=== PATIENT | female | born 1990 | race Caucasian/White ===

== ENCOUNTER → 2016-11-24 | Outpatient (CLI) | payer OTHER ==
--- NOTE | 2016-11-24 13:48 | XR ---
EXAMINATION TYPE: XR spine complete AP and Lat DATE OF EXAM: 11/24/2016 1:45 PM COMPARISON: NONE HISTORY: Neck and back pain TECHNIQUE: Frontal and lateral views of entire spine are obtained including dedicated swimmer's view of the cervical thoracic junction and open mouth view of the C1-C2 articulation. FINDINGS: Cervical spine is seen from C1 through top of T1 level, demonstrates reversal of normal cer vical curvature without evidence of acute fracture or dislocation. Vertebral body heights and disc sp antonia heights are maintained. C1-C2 articulation is within normal limits on the open mouth view. [place] ing soft tissue is unremarkable. Thoracic spine shows satisfactory alignment without evidence of acute fracture or dislocation. Verteb ral body heights and disc space heights are maintained. Visualized ribs are intact bilaterally. There are 5 lumbar type vertebra identified. Lumbar spine shows satisfactory alignment without eviden ce of acute fracture or dislocation. Vertebral body heights and disc space heights are maintained. Ov erlying soft tissue is unremarkable. No significant spurring throughout is present. IMPRESSION: Reversal of normal cervical curvature otherwise unremarkable study.
== END | disposition home or self-care (01) ==
LOC: RADXRMAIN 13:01
PROVIDERS: ATTEND Internal Medicine
DX: R52 Pain, unspecified (principal)
CPT/HCPCS: 72082

== ENCOUNTER → 2016-12-03 | Outpatient (CLI) | payer OTHER ==
--- NOTE | 2016-12-06 07:51 | MM ---
Reason for exam: clinical finding. Baseline mammogram. History: Family history of breast cancer in maternal grandmother and breast cancer in maternal aunt at age 30. MG 3D Diag Mammo W/Cad EVGENY Bilateral CC, MLO, and XCCL view(s) were taken. There are scattered fibroglandular densities. Finding: There are typically benign round calcifications in both breasts. These results were verbally communicated with the patient and result sheet given to the patient on 12/03/16. ASSESSMENT: Benign, BI-RAD 2 RECOMMENDATION: Routine screening mammogram of both breasts at age 42. Manage patient on a clinical basis.
--- NOTE | 2016-12-06 08:08 | USB ---
Reason for exam: clinical finding. History: Family history of breast cancer in maternal grandmother and breast cancer in maternal aunt at age 30. US Breast RT Right breast ultrasound includes all four quadrants, the retroareolar region and axilla. Finding demonstrates a 0.3 x 0.4 x 0.2cm oval lesion too small to characterize at 6 o'clock. These results were verbally communicated with the patient and result sheet given to the patient on 12/03/16. ASSESSMENT: Benign, BI-RAD 2 RECOMMENDATION: Routine screening mammogram of both breasts at age 42. Manage patient on a clinical basis.
== END | disposition home or self-care (01) ==
LOC: RADMAMWWP 13:45
PROVIDERS: ATTEND Internal Medicine
DX: N64.52 Nipple discharge (principal); N64.4 Mastodynia
CPT/HCPCS: 76641; G0204; G0279

== ENCOUNTER → 2017-02-21 | Outpatient (CLI) | payer OTHER ==
--- NOTE | 2017-02-21 12:46 | US ---
EXAMINATION TYPE: US OB <=14 wks transvag DATE OF EXAM: 02/21/2017 COMPARISON: NONE CLINICAL HISTORY: R10.2 Pelvic pain. Cramping after fall yesterday, no bleeding EXAM PERFORMED: OBTA/TV EXAM MEASUREMENTS: GESTATIONAL AGE / DATING Physician Established: not established Dates by LMP: (8 weeks/0 days) EDC: 10/03/2016 Dates by First Scan: NURSES AIDE Dates by Current Scan for: (7 weeks/1 days) EDC: 10/09/2017 MATERNAL ANATOMY Uterus: 11.7 x 6.8 x 5.5cm Right Ovary: 3.4 x 3.2 x 2.1 Left Ovary: 2.2 x 2.1 x 1.0 Post CDS / Adnexa: wnl Presence of free fluid: no Presence of corpus luteal cyst: yes, right = 2.1 Presence of subchorionic bleed: no GESTATION / SURVEY CRL: 0.9cm ( 7 weeks/2 days) MSD: 2.4cm (6 weeks/6 days) Yolk Sac (normal less than 6mm): 0.2cm Heart Rate: 146 bpm Rhythm: Normal IUP: Viable IUP Date of LMP: 12/27/2016 Beta HcG (if available): not available tech impression to Lilia at office of viable IUP IMPRESSION: Single viable intrauterine . Corpus luteal cyst noted on the right.
== END | disposition home or self-care (01) ==
LOC: RADUSWWP 11:17
PROVIDERS: ATTEND Internal Medicine
DX: O34.81 Maternal care for other abnormalities of pelvic organs, first trimester (principal); N83.11 Corpus luteum cyst of right ovary; R10.2 Pelvic and perineal pain; Z3A.01 Less than 8 weeks gestation of pregnancy
CPT/HCPCS: 76801; 76817

== ENCOUNTER 2017-05-17 16:00 | Outpatient (CLI) | payer OTHER ==
--- NOTE | 2017-05-17 17:28 | US ---
EXAMINATION TYPE: US OB limited DATE OF EXAM: 05/17/2017 COMPARISON: 1st trimester OB CLINICAL HISTORY: for placental position, spotting. EXAM PERFORMED: Transabdominal (TA) GESTATIONAL AGE / DATING Physician Established: (20 weeks/1 days) EDC: 10/03/17 No growth performed on today?s study per ordering physician SURVEY PLACENTA: Anterior PREVIA: Low Lying Ultrasound evidence of abruption?no PRESENTATION: Breech HEART RATE: 148 bpm Technically difficult study. Patient of large body habitus, maternal thickness 4.7cm IMPRESSION: There is a low-lying anterior placenta without evidence of previa. No sign of placental abruption. Amniotic fluid appears adequate.
[2017-05-17 17:34] LABS: Appearance,Urine Cloudy (Clear); Bacteria,Urine Many /hpf; Bilirubin,Urine Negative (Negative); Glucose,Urine (UA) Negative (Negative); Ketones,Urine Negative (Negative); Leukocyte Esterase,Urine Negative (Negative); Mucus,Urine Occasional /hpf; Nitrite,Urine Negative (Negative); PH, Urine 5.5 (5.0-8.0); Particle Count 25871; Protein,Urine Trace (Negative); RBC,Urine 3 /hpf (0-5); Specific Gravity,Urine 1.025 (1.001-1.035); Squamous Epithelial Cell,Urine 5 /hpf (0-4); UA Billing (MACRO vs. MICRO) MICRO; WBC,Urine 8 /hpf (0-5)
[2017-05-17 18:00] VITALS: BP 121/58; PULSE 87; RESP 20; TEMP 97.6
--- NOTE | 2017-05-18 08:36 | P.MSEPDOC ---
Presenting Problems - Arrival Data Date of Arrival on Unit: 05/17/17 Time of Arrival on Unit: 16:00 Mode of Transport: Portable - Complaint OB-Reason for Admission/Chief Complaint: Other Comment: some spotting on toilet paper when she wiped Medical History - Information : 2 Para: 1 Term: 1 : 0 Abortions: Spontaneous or Elective: 0 Number of Living Children: 1 Review of Systems - Review of Systems Constitutional: No problems Breast: No problems ENT: No problems Cardiovascular: No problems Respiratory: No problems Gastrointestinal: No problems Genitourinary: No problems Musculoskeletal: No problems Neurological: No problems Skin: No problems Vital Signs - Temperature Temperature: 97.6 F Temperature Source: Skin - Pulse Brachial Pulse Rate: 87 Pulse Assessment Method: Automatic Cuff - Respirations Respiratory Rate: 20 Oxygen Delivery Method: Room Air O2 Sat by Pulse Oximetry: 99 - Blood Pressure Right Arm Blood Pressure: 121/58 Blood Pressure Mean: 79 Blood Pressure Source: Automatic Cuff Medical Screen Scoring (Pre) - Cervical Exam Dilation: 0 cm = 0 Membranes: Intact - Uterine Contractions Frequency: N/A Duration: N/A Intensity: N/A - Maternal Vital Signs Maternal Temperature: N/A Maternal Blood Pressure: N/A Signs of Preeclampsia: N/A Maternal Respirations: N/A - Maternal Trauma Maternal Trauma: N/A - Assessment Baseline FHR: 140 - Total Score Total Score (Pre): 0 - Level of Risk Level of Risk: Low (0-5) Physician Notification (Pre) - Physician Notified Physician Notified Date: 05/17/17 Physician Notified Time: 17:30 Physician/Practitioner Notifed:: Dr Rivera Spoke With: Dr Rivera - Notification Comment Comment: Home with instructions and pt informed will call from office if Urine culture shows anything Disposition - Disposition OB Disposition: Triage, Discharge to home, Written follow up instructions reviewed Discharge Date: 05/17/17 Discharge Time: 17:45 I agree with the RN Medical Screening Exam: Yes Risk & Benefit of care provided described in d/c instruction: Yes Diagnosis: SPOTTING COMPLICATING , SECOND TRIMESTER
== END 2017-05-17 17:45 | disposition home or self-care (01) ==
LOC: FBPOP 16:00
PROVIDERS: ATTEND Obstetrics & Gynecology
DX: O26.852 Spotting complicating pregnancy, second trimester (principal); O44.52 Low lying placenta with hemorrhage, second trimester; Z3A.20 20 weeks gestation of pregnancy
CPT/HCPCS: 81001; 87086; 76815; G0463; 99213

== ENCOUNTER → 2017-05-25 | Outpatient (CLI) | payer OTHER ==
--- NOTE | 2017-05-25 07:58 | US ---
EXAMINATION TYPE: US kidneys/renal and bladder DATE OF EXAM: 05/25/2017 COMPARISON: NONE CLINICAL HISTORY: R31.9 Hematuria R10.9 R Flank Pain N28.9 Renal dis. EXAM MEASUREMENTS: Right Kidney: 12.9 x 5.7 x 5.1 cm Left Kidney: 12.1 x 5.6 x 5.4 cm Right Kidney: No evidence of hydronephrosis or nephrolithiasis. Left Kidney: No evidence of hydronephrosis or nephrolithiasis. Bladder: not fully distended, patient felt very full There is no evidence for hydronephrosis at this point in time. No nephrolithiasis is seen. No bhavesh s are identified. Cortical medullary differentiation is maintained. Urinary bladder is nondistended. IMPRESSION: No evidence of hydronephrosis or nephrolithiasis. No sonographic evidence of medical renal disease. U rinary bladder is incompletely evaluated as it is nondistended.
== END | disposition home or self-care (01) ==
LOC: RADUSWWP 07:12
PROVIDERS: ATTEND Internal Medicine
DX: N28.9 Disorder of kidney and ureter, unspecified (principal); R31.9 Hematuria, unspecified; R10.9 Unspecified abdominal pain
CPT/HCPCS: 76770

== ENCOUNTER → 2017-06-20 | Outpatient (CLI) | payer OTHER ==
[2017-06-20 13:03] LABS: Glucose 3 Hour, Gest 74 mg/dL
== END | disposition home or self-care (01) ==
LOC: LABWHC1 08:32
PROVIDERS: ATTEND Obstetrics & Gynecology
DX: O99.810 Abnormal glucose complicating pregnancy (principal); Z3A.00 Weeks of gestation of pregnancy not specified
CPT/HCPCS: 36415; 82951; 82952

== ENCOUNTER 2017-08-24 13:02 | Outpatient (CLI) | payer OTHER ==
[2017-08-24 13:52] VITALS: BP 125/70; PULSE 101; RESP 18; TEMP 98.8
--- NOTE | 2017-09-04 11:22 | P.MSEPDOC ---
Presenting Problems - Arrival Data Date of Arrival on Unit: 08/24/17 Time of Arrival on Unit: 13:05 Mode of Transport: Ambulatory - Complaint OB-Reason for Admission/Chief Complaint: Possible Onset of Labor, Other Comment: questionable pressure and crampiness. decreased movements. Medical History - Information : 2 Para: 1 Term: 1 : 0 Abortions: Spontaneous or Elective: 0 Number of Living Children: 1 - Gestational Age Gestational Age by MKIEY (wks/days): 34 Weeks and 2 Days - History Comment: of the month for [facility]. sees dr adams at [facility]. sched tomorrow for next appt. Review of Systems - Review of Systems Constitutional: No problems Breast: No problems ENT: No problems Cardiovascular: No problems Respiratory: No problems Gastrointestinal: No problems Genitourinary: No problems Musculoskeletal: No problems Neurological: No problems Skin: No problems Vital Signs - Temperature Temperature: 98.8 F Temperature Source: Oral - Pulse Right Brachial Pulse Rate: 101 Pulse Assessment Method: Automatic Cuff - Respirations Respiratory Rate: 18 Oxygen Delivery Method: Room Air O2 Sat by Pulse Oximetry: 98 - Blood Pressure Right Arm Blood Pressure: 125/70 Blood Pressure Mean: 88 Blood Pressure Source: Automatic Cuff Medical Screen Scoring (Pre) - Cervical Exam Dilation: Exam Deferred Effacement: Exam Deferred Membranes: Intact - Uterine Contractions Frequency: N/A Duration: N/A Intensity: N/A - Maternal Vital Signs Maternal Temperature: N/A Signs of Preeclampsia: N/A Maternal Respirations: N/A - Pain Assessment Pain Location and Character: Lower, Abdomen, Perineal Pain Scale Used: Numeric (1 - 10) Pain Intensity: 6 Pain Description: *Acute Pain Frequency: Intermittent Pain Duration: 5 Pain Duration Units: Hours Pain Behavior: None Exhibited Pain Aggravating Factors: Activity, Position Non-Pharmacological Interventions: Darkened Room, Position/Reposition - Maternal Trauma Maternal Trauma: N/A - Assessment Baseline FHR: 135 Heart Rate - NICHD Category: Category I (Normal) = 0 NST: Reactive Position: N/A Station: N/A - Total Score Total Score (Pre): 0 - Level of Risk Level of Risk: Low (0-5) Physician Notification (Pre) - Physician Notified Physician Notified Date: 08/24/17 Physician Notified Time: 13:32 Physician/Practitioner Notifed:: america Spoke With: america New Order Received: Yes - Notification Comment Comment: discharge Disposition - Disposition OB Disposition: Discharge to home Discharge Date: 08/24/17 Discharge Time: 13:45 I agree with the RN Medical Screening Exam: Yes Risk & Benefit of care provided described in d/c instruction: Yes Diagnosis: FALSE LABOR BEFORE 37 COMPLETED WEEKS OF GEST, THIRD TRI
== END 2017-08-24 13:40 | disposition home or self-care (01) ==
LOC: FBPOP 13:02
PROVIDERS: ATTEND Obstetrics & Gynecology
DX: O47.03 False labor before 37 completed weeks of gestation, third trimester (principal); Z3A.34 34 weeks gestation of pregnancy
CPT/HCPCS: 59025; G0463; 99213

== ENCOUNTER → 2018-02-07 | Outpatient (CLI) | payer OTHER ==
--- NOTE | 2018-02-07 11:33 | US ---
EXAMINATION TYPE: US abdomen complete DATE OF EXAM: 02/07/2018 COMPARISON: NONE CLINICAL HISTORY: R10.11 RUQ Abdominal Pain. RUQ pain for 1.5 weeks, nausea EXAM MEASUREMENTS: Liver Length: 14.7 cm Gallbladder Wall: 0.3 cm CBD: 0.3 cm Spleen: 13.0 cm Right Kidney: 10.8 x 5.3 x 5.4 cm Left Kidney: 11.9 x 4.9 x 4.8 cm Technical limitations due to patient's body habitus and overlying bowel content Pancreas: Tail Obscured by bowel gas Liver: visualized portions appear wnl Gallbladder: multiple stones Evidence for sonographic Vasquez's sign: no CBD: appears wnl Spleen: upper limits of normal in size Right Kidney: no evidence of hydronephrosis as visualized Left Kidney: no evidence of hydronephrosis as visualized Upper IVC: wnl Abd Aorta: wnl The liver is homogenous. The intrahepatic portion of the IVC and proximal abdominal aorta are within normal limits. Common bile duct is unremarkable. The visualized portions of the pancreas are homo genous. The spleen is unremarkable. Kidneys are symmetric and free of hydronephrosis. No renal les ions are seen. IMPRESSION: 1. Cholelithiasis without sonographic evidence of acute cholecystitis. 2. Upper limits of normal size of the spleen although this does not yet meet criteria for splenomegal y.
== END | disposition home or self-care (01) ==
LOC: RADUSWWP 10:14
PROVIDERS: ATTEND Internal Medicine
DX: K80.20 Calculus of gallbladder without cholecystitis without obstruction (principal)
CPT/HCPCS: 76700

== ENCOUNTER → 2018-05-17 | Outpatient (CLI) | payer OTHER ==
--- NOTE | 2018-05-17 09:46 | US ---
EXAMINATION TYPE: US venous doppler duplex LE DATE OF EXAM: 05/17/2018 8:19 AM COMPARISON: NONE CLINICAL HISTORY: M79.661 Right leg pain M79.662 Left leg pain. Patient states having a lump on left lateral calf that hurts x 2 weeks, has been getting smaller. No blood thinners. No hx of blood clot s. No swelling. No redness. SIDE PERFORMED: Bilateral TECHNIQUE: The lower extremity deep venous system is examined utilizing real time linear array sonog maylin with graded compression, doppler sonography and color-flow sonography. VESSELS IMAGED: External Iliac Vein (EIV) Common Femoral Vein Deep Femoral Vein Greater Saphenous Vein * Femoral Vein Popliteal Vein Small Saphenous Vein * Proximal Calf Veins (* superficial vessels) Grayscale, color doppler, spectral doppler imaging performed of the deep veins of the lower extremiti es. There is normal flow, compressibility, vascular waveforms. Right Leg: Negative for DVT Left Leg: Negative for DVT. Area of lump scanned. There is a subtle superficial lesion= 1.2 x 1.1 x 0.5 cm. At the region of the patient's palpable abnormality is similar echogenicity to the surroundi ng fat. This is poorly circumscribed and has peripheral vascular flow. IMPRESSION: 1. No sonographic evidence of deep venous thrombosis within either lower extremity. 2. Lipomatous lesion of the left lower extremity in the region of the palpable abnormality. Although this most commonly represents a benign lipoma this is poorly circumscribed with peripheral vascular f low and therefore MRI could evaluate for any enhancement, which would suggest a malignant lipomatous lesion.
== END | disposition home or self-care (01) ==
LOC: RADUSWWP 07:46
PROVIDERS: ATTEND Internal Medicine
DX: D17.24 Benign lipomatous neoplasm of skin and subcutaneous tissue of left leg (principal)
CPT/HCPCS: 93970

== ENCOUNTER → 2019-06-04 | Outpatient (CLI) | payer OTHER ==
--- NOTE | 2019-06-05 07:27 | US ---
EXAMINATION TYPE: US thyroid st tissue head/neck DATE OF EXAM: 06/04/2019 COMPARISON: NONE CLINICAL HISTORY: R22.0 mass and lump,. Assess palpable right lateral neck noted x 2 years, but incre asing in size. 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 1) US of right neck palpable: couple of lymph nodes are noted, but larger palpable node size = 1.0 x 0.8 x 0.3cm with cortical thickness = 2.5mm. At lateral left neck at same location another lymph n ode is imaged = 1.2 x 0.9 x 0.4cm with cortical thickness = 2.1mm. 2) THYROID US: GLAND SIZE: Right Lobe: 4.9 x 2.1 x 1.5 cm Overall Parenchyma: homogenous Left Lobe: 4.6 x 2.1 x 1.3 cm Overall Parenchyma: homogeneous Isthmus Thickness: 0.2 cm NODULES RIGHT: # of nodules measured on right: no nodules are seen LEFT: # of nodules measured on left: no nodules are seen ISTHMUS: # of nodules measured in the isthmus: no nodules are seen Bilateral neck scanned: superior and medial to left thyroid multiple small nodules are seen with larg est = 1.1 x 0.7 x 0.4cm. IMPRESSION: Similar-appearing bilateral nonenlarged morphologically normal lymph nodes one of which c orresponds to the palpable abnormality. These contain regular fatty moreno and are of low suspicion. Th yroid gland is homogeneous without focal nodule.
== END | disposition home or self-care (01) ==
LOC: RADUSWWP 16:52
PROVIDERS: ATTEND Internal Medicine
DX: R22.0 Localized swelling, mass and lump, head (principal); Z88.0 Allergy status to penicillin
CPT/HCPCS: 76536

== ENCOUNTER → 2019-06-20 | Outpatient (CLI) | payer OTHER ==
--- NOTE | 2019-06-20 09:46 | CT ---
EXAMINATION TYPE: CT soft tissue neck w con DATE OF EXAM: 06/20/2019 7:48 AM COMPARISON: Ultrasound thyroid 06/04/2019 HISTORY: Rt neck mass CT DLP: 701.4 mGycm Automated exposure control for dose reduction was used. CONTRAST: CT scan of the neck is performed following with IV Contrast, patient injected with 100 mL of Isovue 3 00. Axial images are obtained, coronal and sagittal reformatted images are reviewed. FINDINGS: Inflammatory change, possible mucus retention cysts within the maxillary sinuses are noted, skull base otherwise unremarkable. Airway: No gross abnormality seen. Parotid/submandibular glands: No gross abnormality seen. Carotid/Vascular Structures: Patent, 3 super aortic branch vessels are present Osseous Structures: Unremarkable Other: Level the true and false cords is normal. No evident adenopathy. Benign-appearing lymph nodes are present bilaterally. At the site of patient's palpable abnormality as marked by an overlying BB t here is are unremarkable benign-appearing lymph nodes present IMPRESSION: Unremarkable CT neck
== END | disposition home or self-care (01) ==
LOC: RADCTMAIN 07:28
PROVIDERS: ATTEND Internal Medicine
DX: R22.1 Localized swelling, mass and lump, neck (principal); Z88.0 Allergy status to penicillin
CPT/HCPCS: 70491; Q9967

== ENCOUNTER → 2024-04-18 | Outpatient (CLI) | payer OTHER ==
--- NOTE | 2024-04-18 14:04 | XR ---
EXAMINATION TYPE: XR foot complete LT DATE OF EXAM: 04/18/2024 1:56 PM INDICATION: Patient age:Female; 33 years old; Reason for study: S90.32XA CONTUSION OF LEFT FOOT, INITIAL ENCOUNTER; [facility]. COMPARISON: None TECHNIQUE: The left foot was examined in the AP, oblique, and lateral projections. FINDINGS: No evidence of any acute osseous pathology. No evidence of soft tissue swelling. Joints are preserve d. Incidental note is made of symphalangism of the fifth distal interphalangeal joint. Small plantar calcaneal enthesophyte. IMPRESSION: No evidence of acute fracture.
== END | disposition home or self-care (01) ==
LOC: RADXRMAIN 13:42
PROVIDERS: ATTEND Emergency Medicine
DX: S90.32XA Contusion of left foot, initial encounter